=== PATIENT | female | born 1980 | race Caucasian/White ===

== ENCOUNTER 2017-10-11 03:12 | Outpatient (CLI) | payer BC | END 2017-10-11 03:13 | disposition home or self-care (01) | LOC: BICMRI 03:12 | PROVIDERS: ATTEND Orthopaedic Surgery | DX: M54.5 Low back pain (principal) | CPT/HCPCS: 72148 ==

== ENCOUNTER 2019-04-06 11:36 | Outpatient (CLI) | payer BC ==
[2019-04-06 12:31] LABS: #Eosinphils 0.1 thou/uL (0.0-0.7); #Lymphocytes 1.3 thou/uL (1.20-3.40); #Monocytes 0.4 thou/uL (0.11-0.59); #Neutrophils 4.9 thou/uL (1.40-6.50); %Basophils 0.6 % (0.0-1.0); %Eosinophils 0.8 % (0.0-10.0); %Neutrophils 73.7 % (42.0-75.0); Hemoglobin 13.3 g/dL (12.0-16.0); Mean Corpuscular HGB CONC 34.6 g/dL (32.0-36.0); Mean Corpuscular Hemoglobin 30.5 pg (27.0-31.0); Mean Corpuscular Volume 88.1 fL (78.0-98.0); Mean Platelet Volume 8.1 fL (7.4-10.4); Platelet Count 241 thou/uL (130-400); Red Blood Cell (RBC) Count 4.36 mill/uL (4.20-5.40); White Blood Cell (WBC) Count 6.7 thou/uL (4.8-10.8)
[2019-04-06 12:45] LABS: ALT (SGPT) 14 U/L (8-55); AST (SGOT) 15 U/L (5-34); Albumin 4.4 g/dL (3.5-5.0); Alkaline Phosphatase 84 U/L (40-150); Anion Gap 14 mmol/L (10-20); BUN (Urea Nitrogen) 13 mg/dL (7.0-18.7); Bilirubin, Direct 0.1 mg/dL (0.1-0.3); Bilirubin, Total 0.3 mg/dL (0.2-1.2); Calc. Creatinine Clearance 0 mL/min (70-130); Calcium 10.1 mg/dL (7.8-10.44); Carbon Dioxide 25 mmol/L (22-29); Chloride 105 mmol/L (98-107); Estimated GFR-MDRD 65; Glucose 107 mg/dL (70-105); Potassium 4.6 mmol/L (3.5-5.1); Protein, Total 7.4 g/dL (6.0-8.3); Sodium 139 mmol/L (136-145)
== END 2019-04-06 11:37 | disposition home or self-care (01) ==
LOC: LABBT 11:36
PROVIDERS: ATTEND Surgery
DX: Z01.812 Encounter for preprocedural laboratory examination (principal); K80.20 Calculus of gallbladder without cholecystitis without obstruction
CPT/HCPCS: 80048; 80076; 85025

== ENCOUNTER 2019-05-01 08:40 | Day surgery (SDC) | payer BC ==
[2019-04-06 11:54] VITALS: BMI 36.7
[2019-05-01] MEDS ORDERED: cefOXitin 2 GM VIAL ONE (09:19)
[2019-05-01] MEDS ORDERED: Sodium Chloride 0.9% 100 ML ONE (09:20)
[2019-05-01] MEDS ORDERED: Meperidine HCl/PF 25 MG/ML VIAL ONE (10:15)
[2019-05-01] MEDS ORDERED: Fentanyl 100 MCG/2 ML VIAL ONE ×4 (10:15→12:17)
[2019-05-01] MEDS ORDERED: Famotidine/PF 20 mg/2ml Vial ONE (10:15)
[2019-05-01] MEDS ORDERED: Bupivacaine/Epinephrine 0.25% 30 ML VIAL ONE (10:18)
[2019-05-01] MEDS ORDERED: Midazolam HCl 2 mg/2 ml Vial ONE (10:29)
[2019-05-01] MEDS ORDERED: SUGAMMADEX SODIUM 500 MG/5 ML VIAL ONE (10:31)
[2019-05-01] MEDS ORDERED: Ketorolac Tromethamine 30 MG/ML VIAL ONE ×2 (11:45→12:10)
[2019-05-01] MEDS ORDERED: Lidocaine 1% PF 5 ML VIAL ONE (12:10)
[2019-05-01] MEDS ORDERED: Glycopyrrolate 0.2 MG/ML 5 ML SYRINGE ONE (12:10)
[2019-05-01] MEDS ORDERED: Dexamethasone 20 MG/5 ML VIAL ONE (12:10)
[2019-05-01] MEDS ORDERED: PROPOFOL 200 MG/20 ML VIAL ONE (12:10)
[2019-05-01] MEDS ORDERED: Metoclopramide HCl 10 MG/2 ML VIAL ONE (12:10)
[2019-05-01] MEDS ORDERED: Rocuronium Bromide 10 MG/ML (10ML VIAL) ONE (12:10)
[2019-05-01] MEDS ORDERED: Ondansetron PF 4 MG/2 ML Vial ONE (12:10)
--- NOTE | 2019-05-01 16:47 | OP ---
DATE OF PROCEDURE: 05/01/2019 PREOPERATIVE DIAGNOSIS: Symptomatic gallstones. POSTOPERATIVE DIAGNOSIS: Symptomatic gallstones. PROCEDURE PERFORMED: Laparoscopic cholecystectomy. ANESTHESIA: General. ESTIMATED BLOOD LOSS: Minimal. COMPLICATIONS: None. SPECIMEN: Gallbladder. FINDINGS: Chronic cholecystitis. PROCEDURE IN DETAIL: The patient was taken to the operating room and laid supine on the operating room table. After general anesthetic was obtained, the abdomen was prepped and draped in a sterile fashion. A curved incision was made below the umbilicus. Cautery was used to dissect down to the umbilical fascia. Umbilical fascia was incised and held up using a Comfort. The abdominal cavity was entered using a Anna clamp. Holding stitch of Vicryl was placed on each side of the fascia. Andrews trocar was placed. High-flow pneumoperitoneum was obtained. An upper midline 5 mm port and 2 right upper quadrant 5 mm ports were placed under direct camera visualization. The gallbladder was retracted from the gallbladder fossa. The peritoneum of the gallbladder was opened anteriorly and posteriorly. The critical view triangle was seen showing only the cystic duct and cystic artery branching from medial to lateral. There were no other branching structures. Two clips were placed proximally on the cystic duct and one laterally. It was cut using laparoscopic scissors. The cystic artery was taken in the same way. Electrocautery was then used to dissect the gallbladder out of the gallbladder fossa. The gallbladder was placed in an Endo catch bag and brought out through the Andrews. There was no bleeding or bile in the liver bed. The cystic duct stump and cystic artery stump were intact, without evidence of extravasation or bleeding. All port sites were infiltrated using local anesthesia. All ports were removed under camera visualization. Pneumoperitoneum was let down. The Vicryl was used to close the fascial defect below the umbilicus. All incisions were irrigated and closed using 4-0 Monocryl and Dermabond. The patient was en route to Recovery in stable condition. All instrument counts, needle counts and lap counts were correct. Job ID: [id number]
== END 2019-05-01 13:50 | disposition home or self-care (01) ==
LOC: SDC 08:40
PROVIDERS: ATTEND Surgery
PROC: 0FT44ZZ Resection of Gallbladder, Percutaneous Endoscopic Approach (ICD-10-PCS; principal; 2019-05-01)
DX: K80.10 Calculus of gallbladder with chronic cholecystitis without obstruction (principal); Z79.899 Other long term (current) drug therapy; Z88.5 Allergy status to narcotic agent; Z98.890 Other specified postprocedural states
CPT/HCPCS: 88304; J0131; J0694; J1100; J1885; J2001; J2175; J2250; J2405; J2704; J2765; J3010; J3490; S0028

== ENCOUNTER 2019-10-23 13:19 | Outpatient (CLI) | payer BC ==
--- NOTE | 2019-10-23 14:26 | RAD ---
LUMBAR SPINE SERIES FOUR VIEWS INCLUDING FLEXION AND EXTENSION: FINDINGS: The vertebral bodies are normal in height. Disk spaces all appear well preserved. No abnormal motion is seen in the flexion or extension views. IMPRESSION: Unremarkable lumbar spine series. POS: FREDDY
--- NOTE | 2019-10-23 15:20 | MRI ---
MRI lumbar spine noncontrast: HISTORY: Lumbar radiculopathy COMPARISON: None FINDINGS: Appropriate T1 marrow signal intensity of the lumbar vertebra. Lumbar spine vertebral body height is maintained. No fracture. No significant STIR hyperintensity to suggest vertebral body edema or ligamentous injury. Appropriate signal intensity of the paraspinal muscles and visualized solid organs Conus medullaris terminates at the mid to lower aspect of the L1 vertebral body T12-L1:Adequate disc hydration. No significant central canal stenosis or significant neural foraminal narrowing L1-L2:Adequate disc hydration. No significant central canal stenosis or significant neural foraminal narrowing L2-L3:Adequate disc hydration. No significant central canal stenosis or significant neural foraminal narrowing L3-L4:Adequate disc hydration. No significant central canal stenosis or significant neural foraminal narrowing L4-L5:Minimal broad-based disc bulge. No significant central canal stenosis or significant neural for aminal narrowing L5-S1:Adequate disc hydration. No significant central canal stenosis or significant neural foraminal narrowing. Nonspecific fluid signal intensity is noted lateral to the left L5-S1 facet joint. Significance is uncertain of this collection measuring 1.6 cm in maximum dimension. IMPRESSION: 1. No significant central canal stenosis or significant neural foraminal narrowing throughout the lum bar spine. 2. Nonspecific fluid signal intensity lateral to the left L5-S1 facet joint, uncertain significance
== END 2019-10-23 13:20 | disposition home or self-care (01) ==
LOC: BICMRI 13:19
PROVIDERS: ATTEND Anesthesiology Pain Medicine
DX: M54.16 Radiculopathy, lumbar region (principal)
CPT/HCPCS: 72110; 72148

== ENCOUNTER 2020-08-24 17:29 | Emergency (ER) | payer BC ==
[2020-08-24] MEDS ORDERED: Ketorolac Tromethamine 30 MG/ML VIAL ONE ×2 (17:58→17:59)
[2020-08-24] MEDS ORDERED: Cyclobenzaprine 10 MG TAB ONE (17:58)
--- NOTE | 2020-08-24 18:32 | RAD ---
3 views of the left shoulder: 08/24/2020 COMPARISON: None HISTORY: Fall, trauma, pain FINDINGS: There is no widening of the acromioclavicular or coracoclavicular interspace. No displaced fracture or evidence of dislocation is seen. IMPRESSION: No acute fracture or dislocation noted.
--- NOTE | 2020-08-24 18:33 | RAD ---
Right hip 2 views: 08/24/2020 COMPARISON: None HISTORY: Injury, trauma, pain FINDINGS: No fracture or dislocation. No radiopaque foreign body or subcutaneous gas. IMPRESSION: No acute findings.
--- NOTE | 2020-08-24 18:33 | RAD ---
Right shoulder 3 views: 08/24/2020 COMPARISON: None HISTORY: Injury, trauma, pain FINDINGS: No widening of the acromioclavicular or coracoclavicular interspace. No displaced fracture or evidence of dislocation. IMPRESSION: No acute findings.
--- NOTE | 2020-08-24 18:35 | RAD ---
Frontal radiograph pelvis: 08/24/2020 COMPARISON: None HISTORY: Injury, trauma, pain FINDINGS: The femoral heads project normally over the respective acetabulum. The pelvic ring appears intact with no widening of the sacroiliac joints or the pubic symphysis. No displaced fracture seen. IMPRESSION: No acute osseous abnormality.
--- NOTE | 2020-08-24 19:10 | CT ---
CT of thelumbar spine: 08/24/2020 COMPARISON:None available HISTORY:Injury, trauma, pain TECHNIQUE: Serial axial CT imaging at2.5 mm intervals from thelower thoracic spine through the sacrum without contrast. Coronal and sagittal reformatted imaging obtained Findings:Evaluation for central canal and/or neural foraminal stenosis is limited on routine CT. Lumbar vertebral body height and alignment appears within normal limits. There is no osseous cause of significant central canal or neural foraminal stenosis. No acute fractur e or dislocation noted within the lumbar spine. Cholecystectomy clips are noted. Mild multilevel lower lumbar spine facet hypertrophy. Impression:No acute fracture of the lumbar spine.
--- NOTE | 2020-08-24 19:12 | CT ---
Head CT without contrast 08/24/2020: COMPARISON: None HISTORY: Injury, trauma, pain TECHNIQUE: Axial CT imaging at 5 mm intervals from vertex through skull base without contrast FINDINGS: The visualized paranasal sinuses and mastoid air cells are well-aerated. There is no displa evelin calvarial fracture, intracranial hemorrhage, midline shift, or mass effect. There is prominent dilation of the lateral ventricles, unchanged when compared to a brain MRI performed 02/04/2010 IMPRESSION: No acute findings.
--- NOTE | 2020-08-24 19:16 | CT ---
CT of thecervical spine: 08/24/2020 COMPARISON:None available HISTORY:Injury, trauma, pain TECHNIQUE: Serial axial CT imaging at2.5 mm intervals from theskull base through lung apices without contrast. Coronal and sagittal reformatted imaging obtained Findings:Imaged lung apices are unremarkable. C1 ring, occipital condyles, dens, C1-2 articulation, c raniocervical junction, atlantoaxial interspace, and cervicothoracic junction unremarkable. Cervical vertebral body height and alignment appears normal. No prevertebral soft tissue swelling, fr acture, or dislocation. Impression:No acute osseous abnormality.
[2020-08-24] MEDS ORDERED: HYDROcodone/Acetaminophen 10/325 mg Tablet ONE (19:37)
== END 2020-08-24 19:49 | disposition home or self-care (01) ==
LOC: ERS 17:29
DX: M54.5 Low back pain (principal); M25.551 Pain in right hip; K21.9 Gastro-esophageal reflux disease without esophagitis; I50.9 Heart failure, unspecified; Z79.899 Other long term (current) drug therapy; W18.30XA Fall on same level, unspecified, initial encounter
CPT/HCPCS: 70450; 72125; 72131; 72170; 96374; J1885

== ENCOUNTER 2021-10-21 10:20 | Outpatient (CLI) | payer BC ==
[2021-10-21] MEDS ORDERED: Iopamidol-370 76% 500 ML 1 ML ONE (11:27)
== END 2021-10-21 10:21 | disposition home or self-care (01) ==
LOC: BICCT 10:20
PROVIDERS: ATTEND Physician Assistant Medical
DX: R74.8 Abnormal levels of other serum enzymes (principal)
CPT/HCPCS: 74177

== ENCOUNTER 2022-07-14 09:11 | Outpatient (CLI) | payer BC | END 2022-07-14 09:12 | disposition home or self-care (01) | LOC: BICMAMMO 09:11 | PROVIDERS: ATTEND Family Medicine | DX: N64.4 Mastodynia (principal); N63.0 Unspecified lump in unspecified breast | CPT/HCPCS: 77066; G0279 ==

== ENCOUNTER 2025-03-21 14:47 | Outpatient (CLI) | payer BC | END 2025-03-21 14:48 | disposition home or self-care (01) | LOC: SCSRAD 14:47 | PROVIDERS: ATTEND Family Medicine | DX: M54.6 Pain in thoracic spine (principal); M54.2 Cervicalgia | CPT/HCPCS: 72072; 72100 ==